=== PATIENT | male | born 1995 | race African-American/Black ===

== ENCOUNTER → 2018-09-08 16:38 | Outpatient (CLI) | payer OTHER, SELFPAY ==
--- NOTE | 2018-09-08 | DI.MRI.S_ITS ---
PROCEDURE: MR KNEE LT WO CON INDICATIONS: PAIN, INSTABILITY IN LEFT KNEE TECHNIQUE: Noncontrast sagittal PD fast spin echo and T2 fast spin echo with fat saturation, sagittal 3-D FLASH with fat saturation; coronal T1 spin echo and PD fast spin echo with fat saturation, and axial PD fast spin echo with fat saturation through the knee. COMPARISON: None. FINDINGS: Image quality: Excellent. Menisci: There is truncation of the free edge of the anterior horn and body of the medial meniscus. There is a radial, vertically oriented tear of the anterior horn lateral meniscus. Cruciate ligaments: The anterior cruciate ligament demonstrates full thickness tearing close to the femoral insertion site. Posterior cruciate ligament is intact. Medial structures: The medial collateral ligament appears intact, but demonstrates mild surrounding T2 signal elevation. Visualized portions of the pes anserinus tendons appear normal. No abnormal bursal fluid. Lateral structures: The lateral collateral ligament, long and short heads of the biceps femoris tendon appear intact. The popliteus tendon appears normal. Iliotibial band appears normal. Anterior structures: The quadriceps and patellar tendons appear intact. Patellar alignment is normal. No femoral trochlear dysplasia or ventral trochlear prominence. No edema in the infrapatellar fat pad. Bones and cartilage: There is chronic well-corticated irregularity of the anterior tibial tubercle. There is a moderately depressed fracture of the anterior weightbearing and nonweightbearing aspect of the lateral femoral condyle, spanning roughly 20 mm anteroposterior, with roughly 4 mm of maximal depression. There is moderate ill-defined underlying T2 signal elevation within the lateral femoral condyle, indicating contusion. There is moderate ill-defined T2 signal elevation within the posterior weightbearing aspects of the medial and lateral tibial plateaus. Mild diffuse articular cartilage loss overlies the weightbearing aspects of the medial femoral condyle and medial tibial plateau. There is mild diffuse articular cartilage loss overlying the weightbearing aspects of the lateral femoral condyle and lateral tibial plateau. Joint space: There is a moderate knee joint effusion and a trace Brown's cyst. Normal appearing synovial plicae are incidentally noted. IMPRESSION: 1. Moderately depressed fracture of the lateral femoral condyle anteriorly with underlying contusion. Contusions within the medial and lateral tibial plateaus posteriorly. 2. Full thickness anterior cruciate ligament tear. 3. Medial and lateral meniscal tearing. 4. MCL strain. 5. Knee joint effusion. 6. Findings suggestive of remote Daren-Schlatter disease. Dictated by: Elizabeth Mckeon M.D. on 09/09/2018 at 8:24 Approved by: Elizabeth Mckeon M.D. on 09/09/2018 at 8:33
== END ==
PROVIDERS: Visit Provider General Practice
DX: S72.422A Displaced fracture of lateral condyle of left femur, initial encounter for closed fracture (principal); S83.512A Sprain of anterior cruciate ligament of left knee, initial encounter; S83.282A Other tear of lateral meniscus, current injury, left knee, initial encounter; S83.412A Sprain of medial collateral ligament of left knee, initial encounter; S83.242A Other tear of medial meniscus, current injury, left knee, initial encounter; M25.562 Pain in left knee; M25.462 Effusion, left knee
CPT/HCPCS: 73721